=== PATIENT | female | born 1960 | race African-American/Black ===

== ENCOUNTER → 2024-10-24 | Emergency (ER) | payer BC, MEDICARE ==
[2024-10-24 19:14] LABS: #Basophils 0.03 10x3/uL (0.0-0.2); %Basophils 0.3 % (0.0-1.0); %Eosinophils 2.8 % (0.0-10.0); %Lymphocytes 45.1 % (21.0-51.0); %Monocytes 7.8 % (0.0-10.0); %Neutrophils 43.8 % (42.0-75.0); Hematocrit 42.8 % (36.0-47.0); Hemoglobin 14.9 g/dL (12.0-16.0); Mean Corpuscular HGB CONC 34.8 g/dL (32.0-36.0); Mean Corpuscular Volume 91.8 fL (78.0-98.0); Mean Platelet Volume 11.8 fL (7.4-10.4); Platelet Count 321 10x3/uL (130-400); RBC Distribution Width 12.1 % (11.5-14.5); Red Blood Cell (RBC) Count 4.66 mill/uL (4.20-5.40)
[2024-10-24 19:26] LABS: ALT (SGPT) 16 U/L (8-55); AST (SGOT) 18 U/L (5-34); Albumin 4.1 g/dL (3.4-4.8); Alkaline Phosphatase 79 U/L (40-110); Anion Gap 16 mmol/L (10-20); BUN (Urea Nitrogen) 10 mg/dL (9.8-20.1); Bilirubin, Total 0.6 mg/dL (0.2-1.2); Calc. Creatinine Clearance 0 mL/min (70-130); Carbon Dioxide 20 mmol/L (23-31); Chloride 104 mmol/L (98-107); Estimated GFR 94; Globulin 4.2 g/dL (2.4-3.5); Glucose 85 mg/dL (80-115); Potassium 3.8 mmol/L (3.5-5.1); Protein, Total 8.3 g/dL (5.8-8.1); Sodium 136 mmol/L (136-145)
[2024-10-24 19:27] LABS: Troponin I Less than 0.010 ng/mL (< 0.028)
[2024-10-24 19:41] LABS: Bacteria/HPF None Seen HPF (None Seen); Bilirubin Negative (Negative); Blood, Urine Negative (Negative); CAUTI Indications for Culture Dysuria,urgency,freq; Clarity Turbid (Clear); Glucose, Urine (Dipstick) Normal (Negative); Ketone, Urine 40 mg/dL (Negative); Leukocyte Negative Leu/uL (Negative); Nitrite Negative (Negative); Protein, Urine (Dipstick) 30 mg/dL (Neg-Trace); RBC/HPF 0-3 HPF (0-3); Urobilinogen Normal mg/dL (Less than 2); pH, Urine 5.5 (5.0-9.0)
[2024-10-24 20:11] LABS: Urine Culture Reflex No No
== END ==
LOC: ERS 17:06
DX: R00.2 Palpitations (principal)
CPT/HCPCS: 71046; 80053; 81001; 84484; 85025; 85379; 93005

== ENCOUNTER 2024-10-26 08:36 | Emergency (ER) | payer BC, MEDICARE ==
[2024-10-26] MEDS ORDERED: Meclizine HCl 25 MG TAB ONE (09:08)
[2024-10-26] MEDS ORDERED: predniSONE 20 MG TAB ONE (09:08)
== END 2024-10-26 10:05 | disposition home or self-care (01) ==
LOC: ERS 08:36
DX: M32.9 Systemic lupus erythematosus, unspecified (principal); R42 Dizziness and giddiness
CPT/HCPCS: 99283; J7512